=== PATIENT | female | born 1985 | race Caucasian/White ===

== ENCOUNTER 2018-08-06 10:59 | Emergency (ER) | payer OTHER ==
[~2018-08-06] VITALS: Ht 160 cm; Wt 79.4 kg
[2018-08-06 11:08] VITALS: Ht 160 cm; Wt 79.4 kg
[2018-08-06 11:38] VITALS: BP 123/79
== END 2018-08-06 11:38 | disposition home or self-care (01) ==
LOC: ED 10:59
DX: R07.89 Other chest pain (principal); Z88.6 Allergy status to analgesic agent